=== PATIENT | male | born 1990 | race Caucasian/White ===

== ENCOUNTER 2021-04-23 04:19 | Emergency (ER) | payer MEDICAID ==
[~2021-04-23] VITALS: Ht 165.1 cm; Wt 81.0 kg
[2021-04-23 04:25] VITALS: BP 123/84
[2021-04-23] MEDS ORDERED: IBUP-2029 MT (04:41)
[2021-04-23] MEDS ORDERED: IBUPROFEN 600MG TABLET PO ONE (04:45)
== END 2021-04-23 05:15 | disposition home or self-care (01) ==
LOC: ER 04:19
DX: K01.1 Impacted teeth (principal)
CPT/HCPCS: 99282

== ENCOUNTER 2021-07-07 05:11 | Emergency (ER) | payer MEDICAID ==
[~2021-07-07] VITALS: Ht 167.6 cm; Wt 91.0 kg
[~2021-07-07 05:11] MED LIST: IBUP-2029 MT
[2021-07-07 05:29] VITALS: BP 132/89
[2021-07-07] MEDS ORDERED: ACETAMINOPHEN 325MG TABLET PO STA (05:41)
[2021-07-07] MEDS ORDERED: LIDOCAINE HCL/PF 1% 10 MG/ML 5ML VIAL INFIL ONE (06:00)
== END 2021-07-07 08:26 | disposition left against medical advice (07) ==
LOC: ER 05:11
DX: S01.01XA Laceration without foreign body of scalp, initial encounter (principal); R03.0 Elevated blood-pressure reading, without diagnosis of hypertension; W20.8XXA Other cause of strike by thrown, projected or falling object, initial encounter; Y93.89 Activity, other specified; Y92.89 Other specified places as the place of occurrence of the external cause
CPT/HCPCS: 99281; J3490